=== PATIENT | male | born 1950 | race African-American/Black ===

== ENCOUNTER 2019-10-26 10:13 | Inpatient (IN) ==
[2019-10-26] MEDS ORDERED: SODIUM CHLORIDE 0.9% 1,000 ML IV STA (10:29)
[2019-10-26] MEDS ORDERED: ONDANSETRON 4 MG/2 ML VIAL IV STA (10:29)
[2019-10-26 10:56] LABS: Hematocrit 38.3 VOL% (42.0-52.0); Hemoglobin 12.3 GM/DL (14.0-18.0); Immature Granulocytes % 0.2 %; Immature Granulocytes Absolute 0.01 #; Lymphocytes # 0.7 10*3/uL (1.4-4.0); Mean Corpuscular HGB Conc 32.1 GM/DL (32-36); Mean Corpuscular Volume 85.1 FL (87-102); Monocytes % 9.1 % (1.7-12.7); Neutrophils % 75.7 % (38.7-73.9); Platelet Count 196 T/CUMM (130-400); Red Cell Distribution Width 12.1 % (9.3-17.3); White Blood Count 4.4 T/CUMM (4-12)
[2019-10-26 11:26] LABS: Albumin 2.4 G/DL (3.4-5.0); Bilirubin,Total 0.4 MG/DL (0.2-1.0); Calcium 8.4 MG/DL (8.5-10.1); Osmolality,Calculated 266.8 MOS/KG (273-304)
[2019-10-26] MEDS ORDERED: LEVOFLOXACIN INJ 500 MG in PREMIX 1 EACH IV STA (11:42)
[2019-10-26] MEDS ORDERED: ACETAMINOPHEN 500 MG TABLET PO STA (12:49)
[2019-10-26] MEDS ORDERED: ACETAMINOPHEN 500 MG TABLET ONE (12:51)
[2019-10-26] MEDS ORDERED: hydrALAZINE 20 MG/1 ML VIAL IV PRN (13:50)
[2019-10-26] MEDS ORDERED: GLUCAGON 1 MG VIAL IM PRN ×2 (13:50)
[2019-10-26] MEDS ORDERED: DEXTROSE 50% 25 GM/50 ML VIAL IV PRN ×2 (13:50)
[2019-10-26] MEDS ORDERED: ENOXAPARIN 100 MG/ML SYRINGE SUBCUT ONE (14:17)
[2019-10-26] MEDS ORDERED: cefTRIAXone 1,000 MG VIAL ONE (14:44)
[2019-10-26] MEDS ORDERED: AZITHROMYCIN 500 MG VIAL IV ONE (14:44)
[2019-10-26] MEDS ORDERED: SODIUM CHLORIDE 0.9% 100 ML IV ONE (14:45)
[2019-10-26] MEDS ORDERED: INSULIN REGULAR 100 UNIT/ML ONE (14:46)
[2019-10-26] MEDS: INSULIN REGULAR 100 UNIT/ML SUBCUT SCH ×3 (14:55→22:08)
[2019-10-26] MEDS: AZITHROMYCIN INJ 500 MG in SODIUM CHLORIDE 0.9% 250 ML IV SCH (14:56)
[2019-10-26] MEDS: cefTRIAXone 1,000 MG in SYRINGE 1 EACH IV SCH (14:57)
[2019-10-26 15:07] LABS: ABG Base Excess -0.3 MMOL/L (-2.5-2.5); ABG HCO3 24.1 MMOL/L (20-26); ABG Oxygen Saturation 97.1 % (95-100); ABG PCO2 37.2 MM HG (35-48); ABG PH 7.416 (7.35-7.45); ABG PO2 85.3 MM HG (80-95); ABG TCO2 21.2 MMOL/L (23-27)
[2019-10-26 17:22] LABS: Risk Ratio 4.59; Thyroid Stimulating Hormone 1.51 uIU/ml (0.358-3.74); VLDL CHOLESTEROL 28.2 MG/DL
[2019-10-26 18:51] LABS: Bilirubin,Urine Negative (Negative); Blood, Urine Negative (Negative); Glucose,Urine (UA) 150 mg/dL (Negative); Ketones,Urine 20 mg/dL (Negative); Mucus,Urine Occasional /LPF (Occasional); Nitrite,Urine Negative (Negative); Protein,Urine 100 MG/DL; RBC,Urine 1 /HPF (0-4); Squamous Epithelial Cell,Urine Occasional /HPF (0-10); Urine Appearance CLEAR (Clear); Urine Color Yellow (Yellow); Urine Specific Gravity 1.014 (1.001-1.035); Urine Urobilinogen < 2.0 EU/DL (0.2-1.0); WBC,Urine 1 /HPF (0-6)
[2019-10-26] MEDS: guaiFENesin/DM ER 600-30 MG TABLET PO SCH (22:08)
[2019-10-27 04:38] LABS: Eosinophils % 0.3 % (0.00-10.9); Hematocrit 36.9 VOL% (42.0-52.0); Hemoglobin 11.8 GM/DL (14.0-18.0); Immature Granulocytes % 0.3 %; Immature Granulocytes Absolute 0.01 #; Lymphocytes # 0.8 10*3/uL (1.4-4.0); Lymphocytes % 20.8 % (21.2-54.2); Mean Corpuscular Volume 85.6 FL (87-102); Mean Platelet Volume 11.1 FL (9.6-12.0); Monocytes % 11.1 % (1.7-12.7); Neutrophils % 67.5 % (38.7-73.9); Platelet Count 195 T/CUMM (130-400); Red Blood Count 4.31 MC/CUMM (3.8-5.5); Red Cell Distribution Width 12.1 % (9.3-17.3); White Blood Count 3.6 T/CUMM (4-12)
[2019-10-27 04:57] LABS: Calcium 8.9 MG/DL (8.5-10.1); Osmolality,Calculated 268.1 MOS/KG (273-304)
[2019-10-27 05:52] LABS: Ferritin 758.8 ng/ml (26-388)
[2019-10-27] MEDS: ZINC SULFATE 220 MG CAPSULE PO SCH (08:25)
[2019-10-27] MEDS: MULTIVITAMIN (CENTRUM) TABLET PO SCH (08:25)
[2019-10-27] MEDS: LOSARTAN 50 MG TABLET PO SCH (08:25)
[2019-10-27] MEDS: PANTOPRAZOLE 40 MG TABLET PO SCH (08:25)
[2019-10-27] MEDS: ACETAMINOPHEN 325 MG TABLET PO PRN ×2 (08:25→18:25)
[2019-10-27] MEDS: COENZYME Q10 100 MG CAPSULE PO SCH (08:25)
[2019-10-27] MEDS: ASCORBIC ACID 500 MG TABLET PO SCH (08:25)
[2019-10-27] MEDS: OXYBUTYNIN XL 10 MG TABLET PO SCH (08:25)
[2019-10-27] MEDS: guaiFENesin/DM ER 600-30 MG TABLET PO SCH ×2 (08:25→20:08)
[2019-10-27] MEDS: INSULIN REGULAR 100 UNIT/ML SUBCUT SCH ×4 (08:25→20:07)
[2019-10-27] MEDS ORDERED: ONDANSETRON 4 MG/2 ML VIAL IV PRN (10:07)
[2019-10-27] MEDS ORDERED: SODIUM CHLORIDE 0.9% 1,000 ML IV PRN (12:26)
[2019-10-27] MEDS: cefTRIAXone 1,000 MG in SYRINGE 1 EACH IV SCH (15:10)
[2019-10-27] MEDS: AZITHROMYCIN INJ 500 MG in SODIUM CHLORIDE 0.9% 250 ML IV SCH (15:15)
[2019-10-27] MEDS: AZITHROMYCIN 250 MG TABLET PO SCH (15:39)
[2019-10-27] MEDS: ENOXAPARIN 40 MG/0.4 ML SYRINGE SUBCUT SCH (16:20)
[2019-10-27] MEDS: DEXAMETHASONE 10 MG/1 ML VIAL IV SCH (16:20)
[2019-10-27] MEDS ORDERED: REPAGLINIDE 2 MG PO SCH (16:30)
[2019-10-27] MEDS ORDERED: diphenhydrAMINE 50 MG/1 ML VIAL IV ONE (19:25)
[2019-10-27] MEDS ORDERED: methylPREDNISolone SOD SUC 125 MG/2 ML VIAL IV STA (19:35)
[2019-10-27] MEDS ORDERED: FAMOTIDINE 20 MG/2 ML VIAL IV STA (19:36)
[2019-10-27] MEDS ORDERED: methylPREDNISolone SOD SUC 125 MG/2 ML VIAL ONE (19:38)
[2019-10-27] MEDS: metFORMIN 500 MG TABLET PO SCH (20:08)
[2019-10-28 00:02] LABS: Bilirubin,Urine Negative (Negative); Blood, Urine Negative (Negative); Glucose,Urine (UA) Negative (Negative); Ketones,Urine 20 mg/dL (Negative); Mucus,Urine Occasional /LPF (Occasional); Nitrite,Urine Negative (Negative); Protein,Urine 30 MG/DL; RBC,Urine 1 /HPF (0-4); Squamous Epithelial Cell,Urine Occasional /HPF (0-10); Urine Appearance CLEAR (Clear); Urine Color Yellow (Yellow); Urine Specific Gravity 1.015 (1.001-1.035); Urine Urobilinogen < 2.0 EU/DL (0.2-1.0); WBC,Urine 1 /HPF (0-6)
[2019-10-28] MEDS: diphenhydrAMINE 50 MG/1 ML VIAL IV SCH ×4 (01:00→17:05)
[2019-10-28 04:37] LABS: Hematocrit 37.3 VOL% (42.0-52.0); Hemoglobin 12.2 GM/DL (14.0-18.0); Immature Granulocytes % 0.3 %; Immature Granulocytes Absolute 0.01 #; Lymphocytes # 0.3 10*3/uL (1.4-4.0); Mean Corpuscular HGB Conc 32.7 GM/DL (32-36); Mean Corpuscular Volume 84.8 FL (87-102); Mean Platelet Volume 10.6 FL (9.6-12.0); Monocytes % 3.2 % (1.7-12.7); Neutrophils % 86.5 % (38.7-73.9); Platelet Count 232 T/CUMM (130-400); Red Cell Distribution Width 12.2 % (9.3-17.3); White Blood Count 3.4 T/CUMM (4-12)
[2019-10-28 04:48] LABS: Calcium 8.6 MG/DL (8.5-10.1); Osmolality,Calculated 277.4 MOS/KG (273-304)
[2019-10-28 04:54] LABS: Ferritin 898.1 ng/ml (26-388)
[2019-10-28] MEDS: OXYBUTYNIN XL 10 MG TABLET PO SCH (08:31)
[2019-10-28] MEDS: guaiFENesin/DM ER 600-30 MG TABLET PO SCH ×2 (08:31→20:55)
[2019-10-28] MEDS: MULTIVITAMIN (CENTRUM) TABLET PO SCH (08:31)
[2019-10-28] MEDS: COENZYME Q10 100 MG CAPSULE PO SCH (08:31)
[2019-10-28] MEDS: AZITHROMYCIN 250 MG TABLET PO SCH (08:31)
[2019-10-28] MEDS: metFORMIN 500 MG TABLET PO SCH ×2 (08:32→20:55)
[2019-10-28] MEDS: PANTOPRAZOLE 40 MG TABLET PO SCH (08:32)
[2019-10-28] MEDS: ZINC SULFATE 220 MG CAPSULE PO SCH (08:32)
[2019-10-28] MEDS: LOSARTAN 50 MG TABLET PO SCH (08:32)
[2019-10-28] MEDS: ASCORBIC ACID 500 MG TABLET PO SCH (08:32)
[2019-10-28] MEDS: DEXAMETHASONE 10 MG/1 ML VIAL IV SCH (08:33)
[2019-10-28] MEDS: INSULIN REGULAR 100 UNIT/ML SUBCUT SCH ×4 (08:33→20:56)
[2019-10-28 13:13] LABS: Albumin 2.1 G/DL (3.4-5.0); Bilirubin,Direct 0.14 MG/DL (0.0-0.20); Bilirubin,Indirect 0.3 MG/DL (0.0-1.0); Bilirubin,Total 0.4 MG/DL (0.2-1.0); Total Protein 7.1 G/DL (6.4-8.3)
[2019-10-28] MEDS: cefTRIAXone 1,000 MG in SYRINGE 1 EACH IV SCH (14:28)
[2019-10-28] MEDS: ENOXAPARIN 40 MG/0.4 ML SYRINGE SUBCUT SCH (14:31)
[2019-10-28] MEDS ORDERED: Dulaglutide [Trulicity] 1.5 MG SUBCUT SCH (15:00)
[2019-10-28] MEDS ORDERED: REMDESIVIR 200 MG in SODIUM CHLORIDE 0.9% 210 ML IV ONE (17:00)
[2019-10-29] MEDS: diphenhydrAMINE 50 MG/1 ML VIAL IV SCH ×4 (01:16→16:59)
[2019-10-29 06:26] LABS: Hematocrit 38.2 VOL% (42.0-52.0); Hemoglobin 12.7 GM/DL (14.0-18.0); Immature Granulocytes % 0.5 %; Immature Granulocytes Absolute 0.05 #; Lymphocytes # 0.6 10*3/uL (1.4-4.0); Lymphocytes % 5.1 % (21.2-54.2); Mean Corpuscular HGB Conc 33.2 GM/DL (32-36); Mean Corpuscular Volume 82.3 FL (87-102); Mean Platelet Volume 10.9 FL (9.6-12.0); Monocytes % 5.3 % (1.7-12.7); Neutrophils % 89.1 % (38.7-73.9); Platelet Count 318 T/CUMM (130-400); Red Blood Count 4.64 MC/CUMM (3.8-5.5); Red Cell Distribution Width 12.3 % (9.3-17.3); White Blood Count 10.8 T/CUMM (4-12)
[2019-10-29 06:58] LABS: Calcium 9.3 MG/DL (8.5-10.1)
[2019-10-29 07:00] LABS: Albumin 2.3 G/DL (3.4-5.0); Bilirubin,Direct 0.11 MG/DL (0.0-0.20); Bilirubin,Total 1.1 MG/DL (0.2-1.0); Total Protein 7.4 G/DL (6.4-8.3)
[2019-10-29 07:03] LABS: Ferritin 893.6 ng/ml (26-388)
[2019-10-29] MEDS: INSULIN REGULAR 100 UNIT/ML SUBCUT SCH ×4 (08:34→20:31)
[2019-10-29] MEDS: PANTOPRAZOLE 40 MG TABLET PO SCH (08:35)
[2019-10-29] MEDS: guaiFENesin/DM ER 600-30 MG TABLET PO SCH ×2 (08:35→20:31)
[2019-10-29] MEDS: OXYBUTYNIN XL 10 MG TABLET PO SCH (08:35)
[2019-10-29] MEDS: COENZYME Q10 100 MG CAPSULE PO SCH (08:35)
[2019-10-29] MEDS: MULTIVITAMIN (CENTRUM) TABLET PO SCH (08:35)
[2019-10-29] MEDS: metFORMIN 500 MG TABLET PO SCH (08:35)
[2019-10-29] MEDS: DEXAMETHASONE 10 MG/1 ML VIAL IV SCH (08:35)
[2019-10-29] MEDS: LOSARTAN 50 MG TABLET PO SCH (08:35)
[2019-10-29] MEDS: ASCORBIC ACID 500 MG TABLET PO SCH (08:36)
[2019-10-29] MEDS: AZITHROMYCIN 250 MG TABLET PO SCH (08:36)
[2019-10-29] MEDS: ZINC SULFATE 220 MG CAPSULE PO SCH (08:36)
[2019-10-29] MEDS: INSULIN GLARGINE 100 UNIT/ML SUBCUT SCH ×2 (12:41→20:31)
[2019-10-29] MEDS: ENOXAPARIN 40 MG/0.4 ML SYRINGE SUBCUT SCH (14:15)
[2019-10-29] MEDS: cefTRIAXone 1,000 MG in SYRINGE 1 EACH IV SCH (14:15)
[2019-10-29] MEDS: REMDESIVIR 100 MG in SODIUM CHLORIDE 0.9% 230 ML IV SCH (16:59)
[2019-10-29] MEDS: ALBUTEROL INHALER 18 GM INH SCH ×2 (16:59→20:30)
[2019-10-30] MEDS: ALBUTEROL INHALER 18 GM INH SCH ×7 (00:45→23:34)
[2019-10-30] MEDS: diphenhydrAMINE 50 MG/1 ML VIAL IV SCH (00:48)
[2019-10-30 06:40] LABS: Basophils % 0.1 % (0.0-0.8); Hematocrit 35.4 VOL% (42.0-52.0); Hemoglobin 11.8 GM/DL (14.0-18.0); Immature Granulocytes % 2.2 %; Immature Granulocytes Absolute 0.19 #; Lymphocytes # 0.4 10*3/uL (1.4-4.0); Lymphocytes % 5.1 % (21.2-54.2); Mean Corpuscular HGB Conc 33.3 GM/DL (32-36); Mean Corpuscular Volume 81.8 FL (87-102); Mean Platelet Volume 10.9 FL (9.6-12.0); Monocytes % 7.7 % (1.7-12.7); Neutrophils % 84.9 % (38.7-73.9); Platelet Count 316 T/CUMM (130-400); Red Blood Count 4.33 MC/CUMM (3.8-5.5); Red Cell Distribution Width 12.4 % (9.3-17.3); White Blood Count 8.7 T/CUMM (4-12)
[2019-10-30 06:58] LABS: Calcium 8.8 MG/DL (8.5-10.1); Osmolality,Calculated 284.8 MOS/KG (273-304)
[2019-10-30] MEDS: INSULIN REGULAR 100 UNIT/ML SUBCUT SCH ×4 (09:00→20:59)
[2019-10-30] MEDS: ASCORBIC ACID 500 MG TABLET PO SCH (09:01)
[2019-10-30] MEDS: INSULIN GLARGINE 100 UNIT/ML SUBCUT SCH ×2 (09:01→21:00)
[2019-10-30] MEDS: DEXAMETHASONE 10 MG/1 ML VIAL IV SCH (09:01)
[2019-10-30] MEDS: ZINC SULFATE 220 MG CAPSULE PO SCH (09:01)
[2019-10-30] MEDS: COENZYME Q10 100 MG CAPSULE PO SCH (09:01)
[2019-10-30] MEDS: MULTIVITAMIN (CENTRUM) TABLET PO SCH (09:01)
[2019-10-30] MEDS: PANTOPRAZOLE 40 MG TABLET PO SCH (09:01)
[2019-10-30] MEDS: LOSARTAN 50 MG TABLET PO SCH (09:01)
[2019-10-30] MEDS: guaiFENesin/DM ER 600-30 MG TABLET PO SCH ×2 (09:01→21:01)
[2019-10-30] MEDS: OXYBUTYNIN XL 10 MG TABLET PO SCH (09:01)
[2019-10-30] MEDS: AZITHROMYCIN 250 MG TABLET PO SCH (09:02)
[2019-10-30] MEDS: ENOXAPARIN 40 MG/0.4 ML SYRINGE SUBCUT SCH (14:32)
[2019-10-30] MEDS: cefTRIAXone 1,000 MG in SYRINGE 1 EACH IV SCH (14:32)
[2019-10-30] MEDS: REMDESIVIR 100 MG in SODIUM CHLORIDE 0.9% 230 ML IV SCH (16:25)
[2019-10-31] MEDS: ALBUTEROL INHALER 18 GM INH SCH ×6 (02:58→22:21)
[2019-10-31 06:16] LABS: Basophils % 0.2 % (0.0-0.8); Hematocrit 36.4 VOL% (42.0-52.0); Hemoglobin 12.1 GM/DL (14.0-18.0); Immature Granulocytes % 4.9 %; Immature Granulocytes Absolute 0.47 #; Lymphocytes # 0.5 10*3/uL (1.4-4.0); Lymphocytes % 5.2 % (21.2-54.2); Mean Corpuscular HGB Conc 33.2 GM/DL (32-36); Mean Corpuscular Volume 82.4 FL (87-102); Mean Platelet Volume 10.3 FL (9.6-12.0); Monocytes % 8.7 % (1.7-12.7); NRBC # 0.06 10*3/uL; Platelet Count 358 T/CUMM (130-400); Red Blood Count 4.42 MC/CUMM (3.8-5.5); Red Cell Distribution Width 12.5 % (9.3-17.3); White Blood Count 9.6 T/CUMM (4-12)
[2019-10-31 06:24] LABS: Calcium 9.3 MG/DL (8.5-10.1); Osmolality,Calculated 284.5 MOS/KG (273-304)
[2019-10-31] MEDS: MULTIVITAMIN (CENTRUM) TABLET PO SCH (09:20)
[2019-10-31] MEDS: COENZYME Q10 100 MG CAPSULE PO SCH (09:20)
[2019-10-31] MEDS: INSULIN GLARGINE 100 UNIT/ML SUBCUT SCH ×2 (09:21→20:37)
[2019-10-31] MEDS: ENOXAPARIN 40 MG/0.4 ML SYRINGE SUBCUT SCH (09:21)
[2019-10-31] MEDS: DEXAMETHASONE 10 MG/1 ML VIAL IV SCH (09:21)
[2019-10-31] MEDS: ZINC SULFATE 220 MG CAPSULE PO SCH (09:21)
[2019-10-31] MEDS: PANTOPRAZOLE 40 MG TABLET PO SCH (09:21)
[2019-10-31] MEDS: LOSARTAN 50 MG TABLET PO SCH (09:21)
[2019-10-31] MEDS: cefTRIAXone 1,000 MG in SYRINGE 1 EACH IV SCH (09:21)
[2019-10-31] MEDS: guaiFENesin/DM ER 600-30 MG TABLET PO SCH ×2 (09:21→20:37)
[2019-10-31] MEDS: INSULIN REGULAR 100 UNIT/ML SUBCUT SCH ×4 (09:22→20:37)
[2019-10-31] MEDS: ASCORBIC ACID 500 MG TABLET PO SCH (09:52)
[2019-10-31] MEDS: OXYBUTYNIN XL 10 MG TABLET PO SCH (09:52)
[2019-10-31] MEDS: REMDESIVIR 100 MG in SODIUM CHLORIDE 0.9% 230 ML IV SCH (17:43)
[2019-11-01] MEDS: ALBUTEROL INHALER 18 GM INH SCH ×6 (02:45→23:05)
[2019-11-01] MEDS: INSULIN REGULAR 100 UNIT/ML SUBCUT SCH ×4 (07:40→20:58)
[2019-11-01] MEDS: LOSARTAN 50 MG TABLET PO SCH (08:05)
[2019-11-01] MEDS: MULTIVITAMIN (CENTRUM) TABLET PO SCH (08:06)
[2019-11-01] MEDS: COENZYME Q10 100 MG CAPSULE PO SCH (08:06)
[2019-11-01] MEDS: OXYBUTYNIN XL 10 MG TABLET PO SCH (08:06)
[2019-11-01] MEDS: DOCUSATE SODIUM 100 MG CAPSULE PO PRN (08:06)
[2019-11-01] MEDS: guaiFENesin/DM ER 600-30 MG TABLET PO SCH ×2 (08:06→20:58)
[2019-11-01] MEDS: ASCORBIC ACID 500 MG TABLET PO SCH (08:07)
[2019-11-01] MEDS: PANTOPRAZOLE 40 MG TABLET PO SCH (08:07)
[2019-11-01] MEDS: ZINC SULFATE 220 MG CAPSULE PO SCH (08:07)
[2019-11-01] MEDS: ENOXAPARIN 40 MG/0.4 ML SYRINGE SUBCUT SCH (08:08)
[2019-11-01] MEDS: DEXAMETHASONE 10 MG/1 ML VIAL IV SCH (08:09)
[2019-11-01] MEDS: INSULIN GLARGINE 100 UNIT/ML SUBCUT SCH ×2 (08:11→20:59)
[2019-11-01] MEDS: cefTRIAXone 1,000 MG in SYRINGE 1 EACH IV SCH (09:10)
[2019-11-01] MEDS: REMDESIVIR 100 MG in SODIUM CHLORIDE 0.9% 230 ML IV SCH (16:35)
[2019-11-02] MEDS: ALBUTEROL INHALER 18 GM INH SCH ×6 (03:05→22:39)
[2019-11-02 03:29] LABS: Albumin 2.1 G/DL (3.4-5.0); Bilirubin,Total 0.7 MG/DL (0.2-1.0); Calcium 9.1 MG/DL (8.5-10.1); Ferritin 611.4 ng/ml (26-388); Total Protein 6.6 G/DL (6.4-8.3)
[2019-11-02] MEDS: INSULIN REGULAR 100 UNIT/ML SUBCUT SCH ×4 (07:37→20:46)
[2019-11-02] MEDS: guaiFENesin/DM ER 600-30 MG TABLET PO SCH ×2 (09:02→20:46)
[2019-11-02] MEDS: COENZYME Q10 100 MG CAPSULE PO SCH (09:02)
[2019-11-02] MEDS: PANTOPRAZOLE 40 MG TABLET PO SCH (09:02)
[2019-11-02] MEDS: DEXAMETHASONE 10 MG/1 ML VIAL IV SCH (09:02)
[2019-11-02] MEDS: MULTIVITAMIN (CENTRUM) TABLET PO SCH (09:02)
[2019-11-02] MEDS: cefTRIAXone 1,000 MG in SYRINGE 1 EACH IV SCH (09:02)
[2019-11-02] MEDS: OXYBUTYNIN XL 10 MG TABLET PO SCH (09:02)
[2019-11-02] MEDS: LOSARTAN 50 MG TABLET PO SCH (09:02)
[2019-11-02] MEDS: ENOXAPARIN 60 MG/0.6 ML SYRINGE SUBCUT SCH ×2 (09:02→20:46)
[2019-11-02] MEDS: ZINC SULFATE 220 MG CAPSULE PO SCH (09:02)
[2019-11-02] MEDS: ASCORBIC ACID 500 MG TABLET PO SCH (09:02)
[2019-11-02] MEDS: INSULIN GLARGINE 100 UNIT/ML SUBCUT SCH ×2 (10:39→20:46)
[2019-11-02] MEDS: DOCUSATE SODIUM 100 MG CAPSULE PO PRN (20:46)
[2019-11-03] MEDS: ALBUTEROL INHALER 18 GM INH SCH ×4 (02:14→13:00)
[2019-11-03] MEDS: LOSARTAN 50 MG TABLET PO SCH (08:26)
[2019-11-03] MEDS: MULTIVITAMIN (CENTRUM) TABLET PO SCH (08:26)
[2019-11-03] MEDS: ASCORBIC ACID 500 MG TABLET PO SCH (08:26)
[2019-11-03] MEDS: ZINC SULFATE 220 MG CAPSULE PO SCH (08:27)
[2019-11-03] MEDS: PANTOPRAZOLE 40 MG TABLET PO SCH (08:27)
[2019-11-03] MEDS: guaiFENesin/DM ER 600-30 MG TABLET PO SCH (08:27)
[2019-11-03] MEDS: OXYBUTYNIN XL 10 MG TABLET PO SCH (08:27)
[2019-11-03] MEDS: COENZYME Q10 100 MG CAPSULE PO SCH (08:27)
[2019-11-03] MEDS: ENOXAPARIN 60 MG/0.6 ML SYRINGE SUBCUT SCH (08:28)
[2019-11-03] MEDS: DEXAMETHASONE 10 MG/1 ML VIAL IV SCH (08:28)
[2019-11-03] MEDS: INSULIN GLARGINE 100 UNIT/ML SUBCUT SCH (08:29)
[2019-11-03] MEDS: INSULIN REGULAR 100 UNIT/ML SUBCUT SCH ×3 (08:34→17:27)
[2019-11-03 16:07] VITALS: BP 119/65
== END 2019-11-03 17:28 | DRG 177 ==
LOC: N.ED 10:13 → SUATTDRO 13:50 → N.EDINP 13:50 → N.CC 18:50 → N.2E 10-28 15:59
PROVIDERS: ADMIT Internal Medicine; ATTEND Family Medicine